=== PATIENT | female | born 1985 | race Asian ===

== ENCOUNTER 2017-03-25 11:41 | Emergency (ER) | payer OTHER ==
[~2017-03-25] VITALS: Ht 157.5 cm; Wt 59.0 kg
[2017-03-25 11:41] VITALS: BP_SYST 108
[2017-03-25 13:45] VITALS: BP_SYST 110
== END 2017-03-25 13:45 | disposition home or self-care (01) ==
LOC: SED 11:41
DX: O09.892 Supervision of other high risk pregnancies, second trimester (principal); Z3A.22 22 weeks gestation of pregnancy; Z04.1 Encounter for examination and observation following transport accident
CPT/HCPCS: 76805-TC; 99284